=== PATIENT | male | born 1950 | race Two or more races ===

== ENCOUNTER 2022-05-17 20:15 | Inpatient (IN) | payer MEDICARE, MEDICAID ==
[~2022-05-17] VITALS: Ht 182.9 cm; Wt 81.7 kg
[~2022-05-17 20:15] MED LIST: ETOMIDATE 2MG/ML 10ML VIAL IV ONE; VECURONIUM BROMIDE 10 MG/VIAL IV ONE
[2022-05-17] MEDS ORDERED: SODIUM CHLORIDE 0.9% 1000ML BAG (SEPSIS BOLUS) IV ONE (20:45)
[2022-05-17] MEDS ORDERED: PIPERACILLIN/TAZ 3.375G PREMIX 50 ML IV ONE (20:45)
[2022-05-17] MEDS ORDERED: LEVETIRACETAM 500MG PREMIX 100 ML IV ONE (20:45)
[2022-05-17] MEDS ORDERED: VANCOMYCIN 1G PREMIX 200 ML IV ONE (20:45)
[2022-05-17] MEDS ORDERED: LORAZEPAM 2MG/ML CPJ IV ONE (21:15)
[2022-05-17] MEDS ORDERED: PROPOFOL 10MG/ML 100ML 100 ML IV STA (21:27)
[2022-05-17 21:34] LABS: BASOPHILS % 0.4 % (0.0-2.0); EOSINOPHILS % 1.1 % (0.0-5.0); HEMOGLOBIN. 11.2 g/dL (14.0-18.0); LYMPHOCYTES % 22.1 % (20.0-50.0); MEAN CORPUSCULAR HEMOGLOBIN 26.5 pg (28.0-32.0); MEAN CORPUSCULAR VOLUME 85.3 fL (80.0-94.0); MEAN PLATELET VOLUME 8.2 fl (7.4-10.4); MONOCYTES % 5.9 % (2.0-8.0); NEUTROPHILS % 70.5 % (40.0-76.0); PLATELET 212 x1000/uL (130-400); RED BLOOD CELL COUNT 4.23 mill/uL (4.7-6.1); RED CELL DISTRIBUTION WIDTH 15.7 % (11.6-14.6)
[2022-05-17 21:39] LABS: CHLORIDE 107 mEq/L (98-107)
[2022-05-17 21:40] LABS: PROTHROMBIN TIME 10.9 sec (9.6-11.0)
[2022-05-17 21:49] LABS: ETHANOL BLOOD < 10 mg/dL
[2022-05-17] MEDS ORDERED: NICARDIPINE 40MG/200ML PREMIX 200 ML IV STA (22:07)
[2022-05-17] MEDS ORDERED: ACETAMINOPHEN 650MG SUPP PR PRN ×2 (22:45)
[2022-05-17] MEDS ORDERED: ONDANSETRON HCL 4MG/2ML INJ IV PRN (22:45)
[2022-05-17] MEDS ORDERED: IPRATROPIUM/ALBUTEROL 0.5-3(2.5)MG/3ML NEB NEB PRN (22:45)
[2022-05-17] MEDS ORDERED: PIPERACILLIN/TAZ 3.375G PREMIX 50 ML IV SCH (22:45)
[2022-05-17] MEDS ORDERED: DEXT 5%/LACTATED RINGERS 1,000 ML IV SCH (23:00)
[2022-05-17] MEDS ORDERED: NOREPINEPHRINE 8 MG in DEXT 5% WATER 242 ML IV PRN ×4 (23:00)
[2022-05-17 23:19] LABS: BG BASE EXCESS -3.2 mmol/L (-2.0-2.0); BG CARBOXYHEMOGLOBIN 0.6 % (0.5-1.5); BG DEOXYHEMOGLOBIN 0.7 % (0.0-5.0); BG FRACTION INSPIRED OXYGEN 100; BG HCO3 ACT 21.9 mmol/L (22.0-26.0); BG METHEMOGLOBIN 0.4 % (0.0-1.5); BG OXYGEN SATURATION 99.3 % (92.0-98.5); BG OXYHEMOGLOBIN 98.3 % (94.0-97.0); BG PCO2 39.6 mmHg (35.0-45.0); BG PH 7.361 (7.350-7.450); BG PO2 195.5 mmHg (75.0-100.0); BG SAMPLE SITE RIGHT BRACHIAL; BG TOTAL HEMOGLOBIN 14.9 g/dL (12.0-18.0); BG TOTAL RESPIRATORY RATE 21 b/min; BG VENT MODE VENT - APRV
[2022-05-17] MEDS ORDERED: MANNITOL 12.5G (25%) VIAL 50ML IV ONE (23:30)
[2022-05-17] MEDS ORDERED: NICARDIPINE 100 MG in SODIUM CHLORIDE 0.9% 60 ML IV PRN (23:30)
[2022-05-17] MEDS ORDERED: VANCOMYCIN 1.25GM PMX (XELLIA) 250 ML IV NR (23:30)
[2022-05-17] MEDS ORDERED: MORPHINE SULFATE 2 MG/ML CPJ (NOT FOR IM USE) IV PRN (23:30)
[2022-05-17 23:32] LABS: CLARITY URINE CLEAR (CLEAR); COLOR URINE YELLOW (YELLOW); KETONES URINE TRACE (NEGATIVE); LEUKOCYTE ESTERASE URINE NEGATIVE (NEGATIVE); NITRITE URINE NEGATIVE (NEGATIVE); OCCULT BLOOD URINE NEGATIVE (NEGATIVE); PROTEIN URINE 2+ (NEGATIVE); SPECIFIC GRAVITY URINE 1.023 (1.005-1.030); UROBILINOGEN URINE 0.2 E.U./dL (0.2-1.0)
[2022-05-17 23:52] LABS: *AMPHETAMINES SCREEN URINE NEGATIVE (NEGATIVE); *BARBITURATES SCREEN URINE NEGATIVE (NEGATIVE); *BENZODIAZEPINES SCREEN URINE PRESUMTIVE POSITIVE (NEGATIVE); *COCAINE SCREEN URINE NEGATIVE (NEGATIVE); CANNABINOID URINE SCREEN NEGATIVE (NEGATIVE); METHADONE URINE SCREEN NEGATIVE (NEGATIVE); OPIATES URINE SCREEN NEGATIVE (NEGATIVE); PHENCYCLIDINE URINE SCREEN NEGATIVE (NEGATIVE)
[2022-05-17 23:58] LABS: T4 FREE 0.94 ng/dL (0.76-1.46)
[2022-05-18] VITALS (80 sets, daily range): BP systolic 105–180; BP diastolic 53–91
[2022-05-18 00:15] LABS: VITAMIN B12 SERUM 465 pg/mL (211-911)
[2022-05-18 00:30] LABS: FOLIC ACID (FOLATE) SERUM > 20.00 ng/mL (>5.38)
[2022-05-18] MEDS: DEXAMETHASONE 4MG/ML 1ML VIAL IV SCH ×4 (00:50→17:27)
[2022-05-18] MEDS: DEXT 5%/LACTATED RINGERS 1,000 ML IV SCH ×2 (00:53→17:27)
[2022-05-18] MEDS ORDERED: LORAZEPAM 2MG/ML CPJ IV PRN (01:00)
[2022-05-18] MEDS ORDERED: MANNITOL 20% 125 ML IV NR (02:00)
[2022-05-18] MEDS ORDERED: MIDAZOLAM HCL 100 MG in SODIUM CHLORIDE 0.9% 80 ML IV PRN ×2 (02:15→02:30)
[2022-05-18] MEDS: NICARDIPINE 100 MG in SODIUM CHLORIDE 0.9% 60 ML IV PRN (05:49)
[2022-05-18] MEDS: PIPERACILLIN/TAZOBACTAM 3.375G in DEXT 5% WATER 50ML IV SCH ×3 (05:50→20:42)
[2022-05-18] MEDS ORDERED: IOHEXOL-350 100 ML BOTTLE ONE (06:17)
[2022-05-18 07:10] LABS: HEMATOCRIT. 38.6 % (42.0-52.0); HEMOGLOBIN. 12.5 g/dL (14.0-18.0); MEAN CORPUSCULAR VOLUME 82.9 fL (80.0-94.0); MEAN PLATELET VOLUME 7.9 fl (7.4-10.4); PLATELET 194 x1000/uL (130-400); RED BLOOD CELL COUNT 4.65 mill/uL (4.7-6.1); RED CELL DISTRIBUTION WIDTH 15.2 % (11.6-14.6)
[2022-05-18 07:17] LABS: CHLORIDE 112 mEq/L (98-107)
[2022-05-18 07:24] LABS: PHOSPHORUS 2.6 mg/dL (2.5-4.9)
[2022-05-18] MEDS: IPRATROPIUM/ALBUTEROL 0.5-3(2.5)MG/3ML NEB HHN SCH ×4 (08:17→20:17)
[2022-05-18] MEDS ORDERED: LEVETIRACETAM 500MG PREMIX 100 ML IV SCH ×2 (09:00)
[2022-05-18 09:09] LABS: BG BASE EXCESS -1.2 mmol/L (-2.0-2.0); BG CARBOXYHEMOGLOBIN 0.3 % (0.5-1.5); BG FRACTION INSPIRED OXYGEN 80; BG HCO3 ACT 23.3 mmol/L (22.0-26.0); BG METHEMOGLOBIN 0.1 % (0.0-1.5); BG OXYHEMOGLOBIN 98.6 % (94.0-97.0); BG PCO2 38.4 mmHg (35.0-45.0); BG PH 7.401 (7.350-7.450); BG SAMPLE SITE RIGHT RADIAL; BG TOTAL HEMOGLOBIN 13.1 g/dL (12.0-18.0); BG TOTAL RESPIRATORY RATE 16 b/min; BG VENT MODE VENT - AC
[2022-05-18] MEDS: PANTOPRAZOLE SODIUM 40 MG/VIAL IV SCH (09:24)
[2022-05-18 09:49] LABS: PLATELET ESTIMATE NORMAL
[2022-05-18] MEDS ORDERED: PROPOFOL 10MG/ML 100ML 100 ML IV PRN (10:30)
[2022-05-18] MEDS: LEVETIRACETAM 500MG PREMIX 100 ML IV SCH ×2 (11:28→20:42)
[2022-05-18] MEDS: VANCOMYCIN 750MG PREMIX 150 ML IV SCH (13:00)
[2022-05-18] MEDS ORDERED: VANCOMYCIN 750MG PREMIX 150 ML IV SCH (14:00)
[2022-05-18] MEDS ORDERED: ATOR-2 PO (15:32)
[2022-05-18] MEDS ORDERED: BENA40TA91 PO (15:32)
[2022-05-18] MEDS ORDERED: ASPI-1497 PO (15:32)
[2022-05-18] MEDS ORDERED: CHLO25TA2 PO (15:32)
[2022-05-18] MEDS ORDERED: NALOXONE HCL 0.4MG/ML VIAL IV PRN (16:00)
[2022-05-18] MEDS ORDERED: KCL 20MEQ/100ML PREMIX 100 ML IV NR (17:00)
[2022-05-19] VITALS (93 sets, daily range): BP systolic 110–143; BP diastolic 59–85
[2022-05-19] MEDS: DEXAMETHASONE 4MG/ML 1ML VIAL IV SCH ×4 (00:15→18:42)
[2022-05-19] MEDS: NICARDIPINE 100 MG in SODIUM CHLORIDE 0.9% 60 ML IV PRN ×2 (00:16→15:47)
[2022-05-19] MEDS: VANCOMYCIN 750MG PREMIX 150 ML IV SCH (00:16)
[2022-05-19] MEDS: IPRATROPIUM/ALBUTEROL 0.5-3(2.5)MG/3ML NEB HHN SCH ×6 (00:29→21:03)
[2022-05-19] MEDS: PIPERACILLIN/TAZOBACTAM 3.375G in DEXT 5% WATER 50ML IV SCH ×3 (05:05→21:18)
[2022-05-19 05:16] LABS: HEMATOCRIT 32.6 % (42.0-52.0); HEMOGLOBIN 10.7 g/dL (14.0-18.0); MEAN CORPUSCULAR HEMOGLOBIN 26.7 pg (28.0-32.0); MEAN CORPUSCULAR VOLUME 81.3 fL (80.0-94.0); PLATELET 187 x1000/uL (130-400); RED BLOOD CELL COUNT 4.01 mill/uL (4.7-6.1); RED CELL DISTRIBUTION WIDTH 14.8 % (11.6-14.6)
[2022-05-19 05:36] LABS: CHLORIDE 112 mEq/L (98-107)
[2022-05-19 08:26] LABS: BG BASE EXCESS -1.1 mmol/L (-2.0-2.0); BG CARBOXYHEMOGLOBIN 0.1 % (0.5-1.5); BG DEOXYHEMOGLOBIN 1.3 % (0.0-5.0); BG FRACTION INSPIRED OXYGEN 40; BG HCO3 ACT 22.7 mmol/L (22.0-26.0); BG METHEMOGLOBIN 0.1 % (0.0-1.5); BG OXYGEN SATURATION 98.7 % (92.0-98.5); BG OXYHEMOGLOBIN 98.5 % (94.0-97.0); BG PCO2 34.6 mmHg (35.0-45.0); BG PH 7.434 (7.350-7.450); BG PO2 134.7 mmHg (75.0-100.0); BG SAMPLE SITE RIGHT RADIAL; BG TOTAL HEMOGLOBIN 11.8 g/dL (12.0-18.0); BG VENT MODE VENT - AC
[2022-05-19] MEDS: LEVETIRACETAM 500MG PREMIX 100 ML IV SCH ×2 (09:15→21:18)
[2022-05-19] MEDS: PANTOPRAZOLE SODIUM 40 MG/VIAL IV SCH (09:15)
[2022-05-19 10:12] LABS: BG BASE EXCESS 0.9 mmol/L (-2.0-2.0); BG CARBOXYHEMOGLOBIN 0.2 % (0.5-1.5); BG DEOXYHEMOGLOBIN 1.4 % (0.0-5.0); BG FRACTION INSPIRED OXYGEN 40; BG HCO3 ACT 24.8 mmol/L (22.0-26.0); BG METHEMOGLOBIN 0.4 % (0.0-1.5); BG OXYGEN SATURATION 98.6 % (92.0-98.5); BG PCO2 37.1 mmHg (35.0-45.0); BG PH 7.443 (7.350-7.450); BG SAMPLE SITE RIGHT RADIAL; BG TOTAL HEMOGLOBIN 12.1 g/dL (12.0-18.0); BG VENT MODE VENT - CPAP
[2022-05-19] MEDS ORDERED: VANCOMYCIN 1.25GM PMX (XELLIA) 250 ML IV SCH (11:00)
[2022-05-19] MEDS: NEO/POLYMYX B SULF/DEXAMETH 0.1% OPHTH SUSP 5ML BOTHEYE SCH ×2 (13:21→18:42)
[2022-05-19] MEDS: DEXT 5%/LACTATED RINGERS 1,000 ML IV SCH (15:47)
[2022-05-20] VITALS (65 sets, daily range): BP systolic 94–168; BP diastolic 47–106
[2022-05-20] MEDS: NEO/POLYMYX B SULF/DEXAMETH 0.1% OPHTH SUSP 5ML BOTHEYE SCH ×4 (00:24→18:35)
[2022-05-20] MEDS: DEXAMETHASONE 4MG/ML 1ML VIAL IV SCH (00:25)
[2022-05-20] MEDS: IPRATROPIUM/ALBUTEROL 0.5-3(2.5)MG/3ML NEB HHN SCH ×6 (01:29→20:30)
[2022-05-20] MEDS: PIPERACILLIN/TAZOBACTAM 3.375G in DEXT 5% WATER 50ML IV SCH ×3 (05:57→21:15)
[2022-05-20] MEDS: AMLODIPINE 10MG TABLET PO SCH (09:48)
[2022-05-20] MEDS: LEVETIRACETAM 500MG PREMIX 100 ML IV SCH ×2 (09:50→20:36)
[2022-05-20] MEDS: PANTOPRAZOLE SODIUM 40 MG/VIAL IV SCH (09:50)
[2022-05-20] MEDS: VANCOMYCIN 1.25GM PMX (XELLIA) 250 ML IV SCH ×2 (11:38→23:36)
[2022-05-20 13:32] LABS: HEMATOCRIT. 36.2 % (42.0-52.0); HEMOGLOBIN. 11.7 g/dL (14.0-18.0); MEAN CORPUSCULAR HEMOGLOBIN 26.6 pg (28.0-32.0); MEAN CORPUSCULAR VOLUME 82.2 fL (80.0-94.0); PLATELET 225 x1000/uL (130-400); RED CELL DISTRIBUTION WIDTH 15.1 % (11.6-14.6)
[2022-05-20 13:58] LABS: PLATELET ESTIMATE NORMAL
[2022-05-20 14:18] LABS: CHLORIDE 112 mEq/L (98-107)
[2022-05-20] MEDS: CLONIDINE 0.1MG TABLET PO PRN (18:35)
[2022-05-20] MEDS ORDERED: ACETAMINOPHEN 325MG TABLET PO PRN (20:30)
[2022-05-20] MEDS: DOXAZOSIN MESYLATE 4MG TABLET PO SCH (21:15)
[2022-05-21] VITALS: BP 157/103
[2022-05-21 04:00] VITALS: BP 163/98
[2022-05-21] MEDS: IPRATROPIUM/ALBUTEROL 0.5-3(2.5)MG/3ML NEB HHN SCH ×4 (04:34→20:20)
[2022-05-21 05:53] LABS: HEMATOCRIT. 35.7 % (42.0-52.0); HEMOGLOBIN. 11.6 g/dL (14.0-18.0); MEAN CORPUSCULAR HEMOGLOBIN 26.4 pg (28.0-32.0); MEAN CORPUSCULAR VOLUME 81.1 fL (80.0-94.0); PLATELET 204 x1000/uL (130-400); RED BLOOD CELL COUNT 4.41 mill/uL (4.7-6.1); RED CELL DISTRIBUTION WIDTH 15.1 % (11.6-14.6)
[2022-05-21 05:59] LABS: CHLORIDE 111 mEq/L (98-107)
[2022-05-21] MEDS: PIPERACILLIN/TAZOBACTAM 3.375G in DEXT 5% WATER 50ML IV SCH ×2 (06:14→14:55)
[2022-05-21 08:00] VITALS: BP 163/103
[2022-05-21] MEDS: AMLODIPINE 10MG TABLET PO SCH (09:27)
[2022-05-21] MEDS: PANTOPRAZOLE SODIUM 40 MG/VIAL IV SCH (09:27)
[2022-05-21] MEDS: LEVETIRACETAM 500MG PREMIX 100 ML IV SCH ×2 (09:28→21:38)
[2022-05-21] MEDS: CLONIDINE 0.1MG TABLET PO PRN (09:30)
[2022-05-21] MEDS: LOSARTAN POTASSIUM 100 MG TABLET PO SCH (10:16)
[2022-05-21] MEDS: VANCOMYCIN 1.25GM PMX (XELLIA) 250 ML IV SCH (11:35)
[2022-05-21 12:00] VITALS: BP 147/90
[2022-05-21] MEDS: NEO/POLYMYX B SULF/DEXAMETH 0.1% OPHTH SUSP 5ML BOTHEYE SCH ×2 (12:00→18:00)
[2022-05-21 12:46] LABS: PLATELET ESTIMATE NORMAL
[2022-05-21 16:00] VITALS: BP 134/75
[2022-05-21 20:00] VITALS: BP 135/85
[2022-05-21] MEDS: DOXAZOSIN MESYLATE 4MG TABLET PO SCH (21:39)
[2022-05-22] VITALS: BP 121/66
[2022-05-22] MEDS: IPRATROPIUM/ALBUTEROL 0.5-3(2.5)MG/3ML NEB HHN SCH ×5 (00:06→20:51)
[2022-05-22] MEDS: PIPERACILLIN/TAZOBACTAM 3.375G in DEXT 5% WATER 50ML IV SCH ×4 (00:32→21:45)
[2022-05-22] MEDS: VANCOMYCIN 1.25GM PMX (XELLIA) 250 ML IV SCH ×3 (00:33→23:09)
[2022-05-22] MEDS: NEO/POLYMYX B SULF/DEXAMETH 0.1% OPHTH SUSP 5ML BOTHEYE SCH ×5 (00:35→23:11)
[2022-05-22 04:00] VITALS: BP 130/66
[2022-05-22] MEDS: PANTOPRAZOLE 40MG DR TABLET PO SCH (06:32)
[2022-05-22 06:47] LABS: BASOPHILS % 0.1 % (0.0-2.0); EOSINOPHILS % 0.2 % (0.0-5.0); HEMATOCRIT. 36.9 % (42.0-52.0); LYMPHOCYTES % 13.5 % (20.0-50.0); MEAN CORPUSCULAR HEMOGLOBIN 26.6 pg (28.0-32.0); MEAN CORPUSCULAR VOLUME 81.6 fL (80.0-94.0); MEAN PLATELET VOLUME 8.4 fl (7.4-10.4); MONOCYTES % 10.4 % (2.0-8.0); NEUTROPHILS % 75.8 % (40.0-76.0); PLATELET 213 x1000/uL (130-400); RED BLOOD CELL COUNT 4.52 mill/uL (4.7-6.1)
[2022-05-22 07:23] LABS: CHLORIDE 109 mEq/L (98-107)
[2022-05-22 08:00] VITALS: BP 142/83
[2022-05-22] MEDS: LEVETIRACETAM 500MG PREMIX 100 ML IV SCH (09:02)
[2022-05-22] MEDS: LOSARTAN POTASSIUM 100 MG TABLET PO SCH (09:02)
[2022-05-22] MEDS: AMLODIPINE 10MG TABLET PO SCH (09:03)
[2022-05-22 12:00] VITALS: BP 141/95
[2022-05-22 16:00] VITALS: BP 125/82
[2022-05-22] MEDS ORDERED: AMLO10TA80 PO (16:43)
[2022-05-22] MEDS ORDERED: LOSA100T32 PO (16:44)
[2022-05-22] MEDS ORDERED: KEPP500 PO (16:44)
[2022-05-22] MEDS ORDERED: DOXA4TAB2 PO (16:44)
[2022-05-22 20:00] VITALS: BP 141/90
[2022-05-22] MEDS: LEVETIRACETAM 500MG TABLET PO SCH (21:46)
[2022-05-22] MEDS: DOXAZOSIN MESYLATE 4MG TABLET PO SCH (21:47)
[2022-05-23] VITALS: BP 151/89
[2022-05-23] MEDS: IPRATROPIUM/ALBUTEROL 0.5-3(2.5)MG/3ML NEB HHN SCH (00:49)
[2022-05-23 04:00] VITALS: BP 148/87
[2022-05-23] MEDS: PANTOPRAZOLE 40MG DR TABLET PO SCH (05:35)
[2022-05-23] MEDS: NEO/POLYMYX B SULF/DEXAMETH 0.1% OPHTH SUSP 5ML BOTHEYE SCH ×2 (05:35→13:01)
[2022-05-23] MEDS: PIPERACILLIN/TAZOBACTAM 3.375G in DEXT 5% WATER 50ML IV SCH (05:35)
[2022-05-23 07:14] LABS: BASOPHILS % 0.1 % (0.0-2.0); EOSINOPHILS % 2.1 % (0.0-5.0); HEMATOCRIT. 34.6 % (42.0-52.0); HEMOGLOBIN. 11.5 g/dL (14.0-18.0); LYMPHOCYTES % 17.7 % (20.0-50.0); MEAN CORPUSCULAR HEMOGLOBIN 26.9 pg (28.0-32.0); MEAN PLATELET VOLUME 8.2 fl (7.4-10.4); MONOCYTES % 9.6 % (2.0-8.0); NEUTROPHILS % 70.5 % (40.0-76.0); PLATELET 210 x1000/uL (130-400); RED BLOOD CELL COUNT 4.28 mill/uL (4.7-6.1); RED CELL DISTRIBUTION WIDTH 14.6 % (11.6-14.6)
[2022-05-23 08:00] VITALS: BP 139/80
[2022-05-23] MEDS: LEVETIRACETAM 500MG TABLET PO SCH (09:00)
[2022-05-23] MEDS: LOSARTAN POTASSIUM 100 MG TABLET PO SCH (09:00)
[2022-05-23] MEDS: AMLODIPINE 10MG TABLET PO SCH (09:01)
[2022-05-23 10:11] LABS: CHLORIDE 108 mEq/L (98-107)
[2022-05-23 12:00] VITALS: BP 144/82
[2022-05-23 12:30] VITALS: BP 144/82
[2022-05-24] MEDS ORDERED: FAMOTIDINE 20MG TABLET PO SCH (09:00)
== END 2022-05-23 13:55 | disposition home health service (06) | DRG 871 ==
LOC: ER 20:15 → EDBEDREQTM 23:16 → EDBEDREQ 23:16 → MICUSO 05-18 03:36 → 3WST 05-20 23:41
PROVIDERS: ADMIT Internal Medicine; ATTEND Internal Medicine
PROC: 5A1945Z Respiratory Ventilation, 24-96 Consecutive Hours (ICD-10-PCS; principal; 2022-05-17)
PROC: 0BH17EZ Insertion of Endotracheal Airway into Trachea, Via Natural or Artificial Opening (ICD-10-PCS; 2022-05-17)
DX: A41.9 Sepsis, unspecified organism (principal); J96.00 Acute respiratory failure, unspecified whether with hypoxia or hypercapnia; R65.21 Severe sepsis with septic shock; I62.9 Nontraumatic intracranial hemorrhage, unspecified; I16.1 Hypertensive emergency; E87.20 Acidosis, unspecified; G93.40 Encephalopathy, unspecified; E44.1 Mild protein-calorie malnutrition; E78.5 Hyperlipidemia, unspecified; I10 Essential (primary) hypertension; E03.9 Hypothyroidism, unspecified; E11.9 Type 2 diabetes mellitus without complications; D64.9 Anemia, unspecified; G40.909 Epilepsy, unspecified, not intractable, without status epilepticus; I34.81 Nonrheumatic mitral (valve) annulus calcification; I45.10 Unspecified right bundle-branch block; R13.10 Dysphagia, unspecified; R91.8 Other nonspecific abnormal finding of lung field; Z68.24 Body mass index [BMI] 24.0-24.9, adult; Z82.49 Family history of ischemic heart disease and other diseases of the circulatory system
CPT/HCPCS: 31500; 36415; 36600; 71045; 73562; 80048; 80053; 80061; 80185; 80202; 80305; 80320; 81003; 82375; 82607; 82746; 82805; 82962; 83036; 83540; 83550; 83605; 83735; 83880; 84100; 84145; 84439; 84443; 84478; 84484; 85025; 85027; 86850; 86900; 92610; 93005; 93306; 93970; 94002; 94003; 94640; 97112; 97116; 97162; 97165; 99291; C9113; J1100; J1953; J2060; J2270; J2543; J2704; J3370; J3480; J3490; J7030; J7050; J7060; Q9967; A4315; G0480